=== PATIENT | female | born 1955 | race Caucasian/White ===

== ENCOUNTER → 2016-12-11 | Outpatient (CLI) | payer BC | LOC: MC.RAD 09:09 | DX: Z12.31 Encounter for screening mammogram for malignant neoplasm of breast (principal) ==

== ENCOUNTER → 2017-12-12 | Outpatient (CLI) | payer BC | LOC: MC.RAD 11:40 | DX: Z12.31 Encounter for screening mammogram for malignant neoplasm of breast (principal) ==

== ENCOUNTER → 2019-01-22 | Outpatient (CLI) | payer MEDICARE, OTHER | LOC: MC.RAD 12-18 10:30 | DX: Z12.31 Encounter for screening mammogram for malignant neoplasm of breast (principal) ==

== ENCOUNTER → 2021-04-27 | Outpatient (CLI) | payer MEDICARE, OTHER | LOC: MC.RAD 10:46 | DX: R92.0 Mammographic microcalcification found on diagnostic imaging of breast (principal) ==

== ENCOUNTER → 2021-05-03 | Outpatient (CLI) | payer MEDICARE, OTHER | LOC: MC.RAD 10:00 | DX: R92.0 Mammographic microcalcification found on diagnostic imaging of breast (principal); Z98.82 Breast implant status ==

== ENCOUNTER 2021-05-30 11:01 | Day surgery (SDC) | payer MEDICARE, OTHER ==
[~2021-05-30] VITALS: Ht 167.6 cm; Wt 51.8 kg
[2021-05-30 14:19] VITALS: BP 123/65; PULSE 69; TEMP 97.6
[2021-05-30 15:10] VITALS: BP 85/57; PULSE 70
--- NOTE | 2021-05-30 15:10 | NUR ---
Patient returns to room 2 per cart from surgery accompanied by Dionne TORRES and is awake and alert. IV fluids infusing and site is free of redness. Siderails up x2 and call light in reach. Left breast incision covered with exofin skin glue and wounds edges well approximated. Siderails up x2 and spouse in room. Offered apple juice and tolerates well.
[2021-05-30 15:25] VITALS: BP 89/55; PULSE 66
--- NOTE | 2021-05-30 15:25 | NUR ---
Resting and offers no complaints of pain or nausea.
[2021-05-30 15:40] VITALS: BP 91/50; PULSE 66
--- NOTE | 2021-05-30 15:40 | NUR ---
Eating crackers and peanut butter. Denies pain or nausea.
[2021-05-30 15:55] VITALS: BP 101/51; PULSE 66
--- NOTE | 2021-05-30 15:55 | NUR ---
IV discontinued and site is free of redness or swelling. Given dismissal instructions and voices understanding of these. Patient is up and dressed.
--- NOTE | 2021-05-30 16:25 | NUR ---
Patient dismissed to home driven by spouse and taken to the emergency room entrance and assisted into vehicle with dismissal instructions in hand.
== END 2021-05-30 16:25 | disposition home or self-care (01) ==
LOC: SDCO 11:01
DX: D05.12 Intraductal carcinoma in situ of left breast (principal)
CPT/HCPCS: A4648; J0690; J1100; J1885; J2250; J2405; J2704; J3010; J7120

== ENCOUNTER → 2021-05-30 | Outpatient (CLI) | payer MEDICARE, OTHER | LOC: MC.RAD 11:00 | DX: C50.912 Malignant neoplasm of unspecified site of left female breast (principal) | CPT/HCPCS: C1769 ==

== ENCOUNTER → 2022-05-03 | Outpatient (CLI) | payer MEDICARE, OTHER | LOC: MC.RAD 09:10 | DX: Z12.31 Encounter for screening mammogram for malignant neoplasm of breast (principal) ==